=== PATIENT | male | born 1970 | race African-American/Black ===

== ENCOUNTER 2021-06-10 11:28 | Outpatient (REF) | payer MEDICAID, SELFPAY ==
--- NOTE | ~2021-06-10 | XR_ITS ---
EXAMINATION: XR KNEE, RIGHT XR KNEE, LEFT CLINICAL INFORMATION: Pain. COMPARISON: None. TECHNIQUE: AP, tunnel, lateral, and sunrise views of the right and left knee. FINDINGS: Right Knee: No significant joint space narrowing or marginal osteophytes. No osseous erosion. No fracture or dislocation. No abnormal soft tissue calcification. No joint effusion. Left Knee: Mild medial and patellofemoral compartment tiny marginal osteophytes. No osseous erosion. No fracture or dislocation. Trace joint effusion. Tibial tuberosity enthesopathic spurring. XR/XR knee RT 4V IMPRESSION: RIGHT KNEE: Unremarkable examination. 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 Trace joint effusion.
--- NOTE | ~2021-06-10 | XR_ITS ---
EXAMINATION: XR KNEE, RIGHT XR KNEE, LEFT CLINICAL INFORMATION: Pain. COMPARISON: None. TECHNIQUE: AP, tunnel, lateral, and sunrise views of the right and left knee. FINDINGS: Right Knee: No significant joint space narrowing or marginal osteophytes. No osseous erosion. No fracture or dislocation. No abnormal soft tissue calcification. No joint effusion. Left Knee: Mild medial and patellofemoral compartment tiny marginal osteophytes. No osseous erosion. No fracture or dislocation. Trace joint effusion. Tibial tuberosity enthesopathic spurring. XR/XR knee LT 4V IMPRESSION: RIGHT KNEE: Unremarkable examination. 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 Trace joint effusion.
== END 2021-06-10 11:29 | disposition home or self-care (01) ==
LOC: HO.XRAY 11:28
PROVIDERS: PCP Internal Medicine; Visit Provider Internal Medicine
DX: M25.561 Pain in right knee (principal); M25.562 Pain in left knee
CPT/HCPCS: 73564

== ENCOUNTER 2023-10-19 12:58 | Outpatient (REF) | payer MEDICAID, SELFPAY ==
[2023-10-19 14:27] LABS: MANUAL DIFF FLAG NO
[2023-10-19 14:43] LABS: Basophils Absolute Auto 0.1 X10*3/uL (0.0-0.2); Eosinophils Absolute Auto 0.3 X10*3/uL (0.0-0.4); Eosinophils Percent Auto 3.2 % (0-4); Hematocrit 44.9 % (42.0-52.0); Hemoglobin 15.1 g/dl (14.0-18.0); Imm Gran Abs Auto 0.02 X10*3/uL (0.00-0.03); Imm Gran Pct Auto 0.2 % (0.0-0.4); Lymphocytes Percent Auto 35.5 % (20-40); Mean Corpuscular HGB Conc 33.6 g/dl (31.0-36.0); Mean Corpuscular Hemoglobin 29.4 pg (27.0-33.0); Mean Corpuscular Volume 87.5 fL (80.0-98.0); Mean Platelet Volume 10.2 fL (9.4-12.4); Monocytes Absolute Auto 0.8 X10*3/uL (0.1-1.2); Monocytes Percent Auto 9.4 % (2-11); Neutrophils Absolute Auto 4.3 x10*3/uL (2.0-8.3); Neutrophils Percent Auto 50.7 % (45-73); Platelet Count 342 X10*3/uL (160-400); Red Blood Count 5.13 X10*6/uL (4.60-5.80); Red Cell Distribution Width 12.9 % (11.0-16.0); White Blood Count 8.4 X10*3/uL (4.8-10.8)
[2023-10-19 14:50] LABS: Anion Gap 10 (12-20); Blood Urea Nitrogen 10 mg/dL (9-16); Calcium 9.8 mg/dL (8.4-10.2); Carbon Dioxide 30 mmol/L (22-29); Chloride 103 mmol/L (96-108); Cholesterol 178 mg/dL (<200); Estimated Glomerular Filt Rate > 60; Glucose Random 83 mg/dL (60-115); HDL Cholesterol 52 mg/dL (>40); LDL Cholesterol Calculated 107 mg/dL (<100); Potassium 4.1 mmol/L (3.3-5.1); Sodium 139 mmol/L (135-145); Triglycerides 96 mg/dL (<150)
== END 2023-10-19 12:59 | disposition home or self-care (01) ==
LOC: HO.CHCLDS 12:58
PROVIDERS: Visit Provider Internal Medicine
DX: E78.00 Pure hypercholesterolemia, unspecified (principal)
CPT/HCPCS: 36415; 80048; 80061; 84443; 85025

== ENCOUNTER 2025-11-12 11:05 | Outpatient (REF) | payer SELFPAY ==
--- OUTSIDE RECORDS SUMMARY | 2025-11-12 09:30 | XMS_ITS | Encounter Summary ---
Author Organization [email or web address] Address [address] [place] [address] 7 [place] [address] Care Team Providers Care Diet Attendant Name Role Phone Gertrude Davis MD Primary Care Provider [phone] Reason for Visit * Reason Comments Annual Exam Encounter Details Date Type Department Care Team ([facility] st Contact Info) Description 11/12/2025 9:30 AM EST Office Visit [facility] [address] [place], [place] [phone] Gertrude Davis MD [address] [place] [address] Annual physical exam (Primary Dx); Hypercholesterolemia; Primary hypertension; Seasonal allergies; Depressive disorder; Other asthma; Dietary counseling; Exercise counseling; Class 1 obesity due to excess calories with serious comorbidity and body mass index (BMI) of 30.0 to 30.9 in adult; Intertrigo of web of toe; Vitiligo; Blurry vision; Encounter for immunization Social History Tobacco Use Types Packs/Day Years Used Date Smoking Tobacco: Never Smokeless Tobacco: Never Alcohol Use Standard Drinks/Week Comments Never 0 (1 standard drink = 0.6 oz pur e alcohol) Depression Answer Date Recorded Patient Health Questionnaire-9 Score 6 11/12/2025 Patient Health Questionnaire-9 Score 6 11/12/2025 Last PHQ-9: Questionnaire Data Not on file 1 01/13/2025 Housing Stability Answer Date Recorded What is your housing situation today? I have rosemarie felix 11/05/[address] you li ve. Do you have problems with any of the following? None of the above 11/05/2025 Food Insecurity Answer Date Recorded Within the past 12 months, y ou worried that your food would run out before you got money to buy more: Never True 11/05/2025 Within the past 12 months,th e food you bought just didn't last and you didn't have enough money to get more: Never True Transportation Answer Date Recorded In the past 12 months, has l ack of transportation kept you from medical appts, meetings, work or from getting things needed for daily living? No 11/05/2025 Utilities Answer Date Recorded In the past 12 months, has t he [employer], gas, oil or water company threatened to shut off services in your home? No 11/05/2025 Depression Answer Date Recorded Patient Health Questionnaire-2 Score 2 11/12/2025 Internet Access Answer Date Recorded Internet Access Q1 Yes 11/05/2025 Internet Access Q2 Not on file 11/05/2025 Sex and Gender Information Value Date Recorded Sex Assigned at Male 09/20/2022 10:33 AM EDT Legal Sex Male 10:33 AM EDT Gender Identity Male 09/20/2022 10:33 AM EDT Sexual Orientation Straight 09/20/2022 10 :33 AM EDT documented as of this encounter Last Filed Vital Signs Vital Sign Reading Time Taken Comments Blood Pressure 129/73 11/12/2025 9:28 AM EST Pulse 68 11/12/2025 9:28 AM EST Temperature 36.7 C (98.1 F) 11/12/2025 9:28 AM EST Respiratory Rate 20 11/12/2025 9:28 AM EST Oxygen Saturation 98% 11/12/2025 9:28 AM EST Inhaled Oxygen Concentration - - Weight 97.1 kg (214 lb) 11/12/2025 9:28 AM EST Height 177.8 cm (5' 10 ) 11/12/2025 9:28 AM EST Body Mass Index 30.71 11/12/2025 9:28 AM EST documented in this encounter Functional Status * Over the past 2 weeks, how often have you been bothered by any of the following problems? Question Answer Date of Assessment Author Patient Health Questionnaire-2 Score 2 10/22 9:35 AM EST Francheska Shafer MA * Little interest or pleasure in doing things Answer Date of Assessment Author Several days 11/12/2025 9:35 AM EST Quan Shafer MA * Feeling down, depressed, or hopeless Answer Date of Assessment Author Several days 11/12/2025 9:35 AM Quan Parmra [place] * Trouble falling or staying asleep, or sleeping too much Answer Date of Assessment Author Several days 11/12/2025 9:35 AM Quan Parmar MA * Feeling tired or having little energy Answer Date of Assessment Author Several days 11/12/2025 9:35 AM Quan Parmar MA * Poor appetite or overeating Answer Date of Assessment Author Not at all 11/12/2025 9:35 AM Quan Parmar MA * Feeling bad about yourself - or that you are a failure or have let yourself or your family down Answer Date of Assessment Author Several days 11/12/2025 9:35 AM Quan Parmar MA * Trouble concentrating on things, such as reading the newspaper or watching television Answer Date of Assessment Author Several days 11/12/2025 9:35 AM Quan Parmar MA * Moving or speaking so slowly that other people could have noticed? Or the opposite - being so fidgety or restless that you have been moving around a lot more than usual. Answer Date of Assessment Author Not at all 11/12/2025 9:35 AM Quan Parmar MA * Thoughts that you would be better off or hurting yourself in some way Answer Date of Assessment Author Not at all 11/12/2025 9:35 AM Quan Parmar MA * Patient Health Questionnaire-9 Score Answer Date of Assessment Author 6 11/12/2025 9:35 AM Quan Parmar MA * Over the last 2 weeks, how often have you been bothered by any of the following problems? Question Answer Date of Assessment Author Feeling nervous, anxious, or on edge 1 10/22 9:34 AM Francheska Parmar MA Not being able to stop or co ntrol worrying 0 11/12/2025 9:34 AM Francheska Parmar MA Worrying too much about diff erent things 1 11/12/2025 9:34 AM Francheska Parmar MA Trouble relaxing 0 11/12/2025 9:34 AM Francheska Monroy MA Being so restless that it is hard to sit still 1 11/12/2025 9:34 AM Francheska Parmar MA Becoming easily annoyed or irritable 1 10/22 9:34 AM Francheska Parmar MA Feeling afraid as if somethi ng awful might happen 0 11/12/2025 9:34 AM Francheska Parmar MA KANNAN-7 Total Score 4 11/12/2025 9:34 AM Francheska Parmar MA * How difficult have these problems made it for you to do your work, take care of things at home, or get along with other people? Answer Date of Assessment Author Somewhat difficult 11/12/2025 9:35 AM Francheska Parmar MA documented as of this encounter Progress Notes * Gertrude Davis MD - 11/12/2025 9:30 AM EST SUBJECTIVE Jackson Posada is a 55 y.o. male who presents for Annual Exam. HPI Jackson Posada, 55-year-old male - History of depression, previously felt depressed, currently feels better but not fully recovered - Denies suicidal ideation - Previously took medication for depression, stopped due to personal preference and perceived lack of effect, switched to a different medication with no improvement - Reports sleep is better but still wakes up before midnight and at 3:00 AM - History of asthma, symptoms worse in spring and summer - Gallbladder removed in May 2025 - Reports congestion when montelukast is stopped, improvement when resumed - Longstanding vitiligo, limited to a specific area, associated with itching - Sensation of something in the right eye, present for years, worse with light and at night, associated with swelling - Chronic back pain, reports ornu-mvo-nuopnab medications do not help Problem List[1] Allergies[2] Medications Ordered Prior to Encounter[3] Review of Systems Constitutional: Negative for activity change, appetite change, chills and diaphoresis. HENT: Negative for dental problem, drooling and ear discharge. Eyes: Negative for pain and itching. Respiratory: Negative for cough, choking and chest tightness. Cardiovascular: Negative for palpitations and leg swelling. Gastrointestinal: Negative for abdominal pain, anal bleeding and blood in stool. Endocrine: Negative for cold intolerance and heat intolerance. Genitourinary: Negative for flank pain, frequency and genital sores. Musculoskeletal: Positive for back pain. Neurological: Negative for light-headedness, numbness and headaches. Psychiatric/Behavioral: Negative for agitation, confusion and decreased concentration. OBJECTIVE Vitals: 11/12/25 0928 BP: 129/73 BP Location: Left arm Patient Position: Sitting BP Cuff Size: Adult long Pulse: 68 Resp: 20 Temp: 98.1 ??F (36.7 ??C) TempSrc: Oral SpO2: 98% Weight: 214 lb (97.1 kg) Height: 5' 10 (1.778 m) Physical Exam Constitutional: General: He is not in acute distress. Appearance: Normal appearance. He is obese. He is not ill-appearing, toxic- appearing or diaphoretic. HENT: Head: Normocephalic. Right Ear: Tympanic membrane normal. Left Ear: Tympanic membrane normal. Nose: Nose normal. Eyes: General: No scleral icterus. Right eye: No discharge. Left eye: No discharge. Pupils: Pupils are equal, round, and reactive to light. Cardiovascular: Rate and Rhythm: Normal rate and regular rhythm. Heart sounds: No murmur heard. No friction rub. No gallop. Pulmonary: Effort: Pulmonary effort is normal. No respiratory distress. Breath sounds: Normal breath sounds. No stridor. No wheezing, rhonchi or rales. Chest: Chest wall: No tenderness. Abdominal: General: Abdomen is flat. There is no distension. Palpations: Abdomen is soft. There is no mass. Tenderness: There is no abdominal tenderness. There is no right CVA tenderness, guarding or rebound. Hernia: No hernia is present. Musculoskeletal: General: Normal range of motion. Cervical back: Normal range of motion. Skin: General: Skin is warm. Comments: Whitish Maceration of the third and fourth toe webs b/l Neurological: General: No focal deficit present. Mental Status: He is alert. Psychiatric: Mood and Affect: Mood normal. Behavior: Behavior normal. Assessment/Plan Assessment/Plan Diagnoses and all orders for this visit: Annual physical exam - CBC auto differential; Future - Comprehensive Metabolic Panel; Future - Lipid Panel, Standard; Future - TSH with Reflex to Free T4; Future Hypercholesterolemia Primary hypertension - CBC auto differential; Future - Comprehensive Metabolic Panel; Future - Lipid Panel, Standard; Future - TSH with Reflex to Free T4; Future Seasonal allergies - cetirizine (ZyrTEC) 10 MG tablet; Take 1 tablet (10 mg) by mouth in the morning. Depressive disorder - sertraline (Zoloft) 25 MG tablet; Take 1 tablet (25 mg) by mouth Once per day. Other asthma - montelukast (Singulair) 10 MG tablet; Take 1 tablet (10 mg) by mouth at bedtime. Dietary counseling Exercise counseling Class 1 obesity due to excess calories with serious comorbidity and body mass index (BMI) of 30.0 to 30.9 in adult Dietary Recommendations: Fruits, vegetables, whole grains, protein foods, and fat-free or low-fat dairy products are healthychoices. Eat different types of protein foods in your diet. This can include seafood, lean meats, poultry, beans, peas, lentils, nuts, seeds, soy products, and eggs. Limit foods and beverages higher in added sugars, saturated fat, and sodium. Exercise Recommendations: At least 150 minutes of moderate-intensity physical activity per week, or an equivalent combinationof moderate- and vigorous-intensity activity Intertrigo of web of toe - terbinafine (LamISIL) 250 MG tablet; Take 1 tablet (250 mg) by mouth Once per day for 14 days. Vitiligo Comments: Vitiligo of foreskin and glans penis. Pt defer treatment. Blurry vision Annual physical exam: - Annual physical exam performed. Hypercholesterolemia: - Hypercholesterolemia addressed. - Ordered blood test to check cholesterol. Recommended low cholesterol diet. Primary hypertension: - Blood pressure well controlled, no change required. - Continue current management. Seasonal allergies: - Allergic symptoms controlled with current medications. - Continue cetirizine and montelukast. Confirmed no contraindication for montelukast after cholecystectomy. Resume montelukast due to congestion when discontinued. Depressive disorder: - Depressive disorder present, positive screening. Not in remission. No current suicidal ideation. - Offered psychotherapy and medication. Patient declined psychotherapy and initially declined medication, then agreed to start medication at lowest dose. Plan to titrate dose as needed, with follow-up in 1 month to assess response. Monitor for side effects. - Risks and side effects: Discussed that medication may take time to work and possible side effects; instructed to report any side effects. Other asthma: - Asthma symptoms not severe at present. - Resume montelukast as needed, especially during spring and summer. Monitor symptoms. Dietary counseling: - Dietary counseling provided. - Recommended low cholesterol diet. Advised to watch diet. Exercise counseling: - Exercise counseling provided. - Advised to start exercising, begin with walking. Goal of 150 minutes per week of physical activity. Class 1 obesity due to excess calories with serious comorbidity and body mass index (BMI) of 30.0 to 30.9 in adult: - Class 1 obesity addressed. - Recommended dietary changes and increased physical activity. Intertrigo of web of toe: - Intertrigo present between toes. - Prescribed oral medication for 14 days. Recommended use of dry salt solution (Drysol 20%) to apply between toes. Vitiligo: - Vitiligo present, remains localized, benign, not bothersome. - Monitor for progression. Blurry vision: - Blurry vision in right eye, present for years. - Referral to ophthalmology for comprehensive eye exam. Back pain: - Back pain present, not relieved by sadh-rfo-xwedufr medications. - Plan to address back pain in detail at next visit. This note was drafted using Ambient (AI) technology. The patient/patient's guardian has been informed and has consented to the use of this technology: Yes [1] Patient Active Problem List Diagnosis Asthma Depressive disorder Hypercholesterolemia Hypertensive disorder Seasonal allergies Hospital discharge follow-up [2] Allergies Allergen Reactions Penicillin G Unknown Penicillins Other reaction(s): Hives / Skin Rash Peanut-Containing Drug Products Hives and Rash Other Reaction(s): peanut butter [3] Current Outpatient Medications on File Prior to Visit Medication Sig Dispense Refill atorvastatin (Lipitor) 10 MG tablet TAKE ONE TABLET BY MOUTH ONCE DAILY 90 tablet 1 baclofen (Lioresal) 10 MG tablet TAKE ONE TABLET TWICE DAILY 60 tablet 5 cetirizine (ZyrTEC) 10 MG tablet TAKE ONE TABLET DAILY 90 tablet 5 cetirizine (ZyrTEC) 10 MG tablet TAKE ONE TABLET EVERY MORNING 90 tablet 0 gabapentin (Neurontin) 300 MG capsule TAKE ONE CAPSULE TWICE DAILY 60 capsule 5 lisinopril 20 MG tablet TAKE ONE TABLET EVERY DAY 90 tablet 1 montelukast (Singulair) 10 MG tablet TAKE ONE TABLET BY MOUTH EVERY EVENING 90 tablet 1 omeprazole (PriLOSEC) [address] capsule TAKE ONE CAPSULE TWICE DAILY BEFORE A MEAL 180 capsule 1 No current facility-administered medications on file prior to visit. documented in this encounter Plan of Treatment Upcoming Encounters Date Type Department Care Team (Late st Contact Info) Description 12/10/2025 4:00 PM EST Office Visit [facility] [address] [place] [address] Gertrude Davis MD [address] [place] [address] Scheduled Orders Name Type Priority Associated Diagnoses Orde r Schedule CBC auto differential Lab Routine Annual physical exam Primary hypertension Expected: 11/12/2025 (Approximate), Expires: 11/12/2026 Comprehensive Metabolic Panel Lab Routine Annual physical exam Primary hypertension Expected: 11/12/2025 (Approximate), Expires: 11/12/2026 Lipid Panel, Standard Lab Routine Annual physical exam Primary hypertension Expected: 11/12/2025 (Approximate), Expires: 11/12/2026 TSH with Reflex to Free T4 Lab Routine Annual physical exam Primary hypertension Expected: 11/12/2025 (Approximate), Expires: 11/12/2026 documented as of this encounter Visit Diagnoses Diagnosis Annual physical exam- Primary Routine general medical examination at a health care facility Hypercholesterolemia Pure hypercholesterolemia Primary hypertension Unspecified essential hypertension Seasonal allergies Allergic rhinitis, cause unspecified Depressive disorder Depressive disorder, not elsewhere classified Other asthma Dietary counseling Dietary surveillance and counseling Exercise counseling Class 1 obesity due to excess calories with serious comorbidity and body mass index (BMI) of 30.0 to 30.9 in adult Intertrigo of web of toe Vitiligo Blurry vision Other specified visual disturbances Encounter for immunization documented in this encounter Additional Health Concerns Assessment Noted Time PHQ-9 Depression Total Score: 6 11/12/20 25 9:35 AM EST documented as of this encounter Care Teams Diet Attendant Relationship Specialty Start Date End Date Gertrude Davis MD [address] [place] [address] PCP - General Internal Medicine 12/06/18 documented as of this encounter
--- OUTSIDE RECORDS SUMMARY | 2025-11-12 12:26 | XMS_ITS | Encounter Summary ---
Author Organization [employer] Address [address] [facility] [address] [place] [address] Care Team Providers Care Deep Fat Fry Cook Name Role Phone Gertrude Davis MD Primary Care Provider [phone] Encounter Details Date Type Department Care Team (Latest Contact Info) Description 11/12/2025 Travel Social History Tobacco Use Types Packs/Day Years [...] the past 12 months, has t he electric, gas, oil or water company threatened to [...] AM EDT documented as of this encounter Plan of Treatment Upcoming Encounters Date Type Department Care Team (Late st Contact Info) Description 12/10/2025 4:00 PM EST Office Visit [facility] [address] [place] [address] Gertrude Davis MD [address] [place] [address] documented as of this encounter Visit Diagnoses Not on filedocumented in this encounter Additional Health Concerns Assessment Noted Time PHQ-9 Depression Total Score: 6 11/12/20 25 9:35 AM EST documented as of this encounter Care Teams Deep Fat Fry Cook Relationship Specialty Start Date End Date Gertrude Davis MD [address] [place] [address] PCP - General Internal Medicine 12/06/18 documented as of this encounter
--- OUTSIDE RECORDS SUMMARY | 2025-11-12 12:26 | XMS_ITS | Encounter Summary ---
Author Organization [employer] Address [address] [place] [address] Care Team Providers Care Director Paid Media Name Role Phone Gertrude Davsi MD Primary Care Provider [phone] Reason for Referral * Consultation (Routine) - Pending Review Specialty Diagnoses / Procedures Referred By Montserrat junior Referred To Contact Ophthalmology Diagnoses Primary hypertension Gertrude Davis MD [address] [place] [address] Phone: tel: fax: Referral ID Status Reason Start Date Expiration Date Visits Requested Visits Authorized [id number] Pending Review Specialty Services Required 07/05/2025 07/05/2026 1 1 Encounter Details Date Type Department Care Team ([facility] st Contact Info) Description 07/05/2025 Orders Only [facility] [address] [place] [id number] Gertrude Davis MD [address] [place] [address] Primary hypertension (Primary Dx) Social History Tobacco Use Types Packs/Day Years Used Date Smoking Tobacco: Never Smokeless Tobacco: Never Alcohol Use Standard Drinks/Week Comments Never 0 (1 standard drink = 0.6 oz pur e alcohol) Sex and Gender Information Value Date Recorded Sex Assigned at Male 09/20/2022 10:33 AM EDT Legal Sex Male 10:33 AM EDT Gender Identity Male 09/20/2022 10:33 AM EDT Sexual Orientation Straight 09/20/2022 10 :33 AM EDT documented as of this encounter Plan of Treatment Upcoming Encounters Date Type Department Care Team (Late st Contact Info) Description 12/10/2025 4:00 PM EST Office Visit [facility] [address] [place] [address] Gertrude Davis MD [address] [place] [address] Scheduled Referrals Name Type Priority Associated Diagnoses Orde r Schedule Referral to Ophthalmology Outpatient Referral Routine Primary hypertension Expected: 07/05/2025 (Approximate), Expires: 07/05/2026 documented as of this encounter Visit Diagnoses Diagnosis Primary hypertension- Primary Unspecified essential hypertension documented in this encounter Care Teams Director Paid Media Relationship Specialty Start Date End Date Gertrude Davis MD [address] [place] [address] PCP - General Internal Medicine 12/06/18 documented as of this encounter
--- OUTSIDE RECORDS SUMMARY | 2025-11-12 12:26 | XMS_ITS | Encounter Summary ---
Author Organization [email or web address] Address [address] [place] [address] 7 [place] [address] Care Team Providers Care Undertaker Helper Name Role Phone Gertrude Davis MD Primary Care Provider [phone] Encounter Details Date Type Department Care Team (Late st Contact Info) Description 05/18/2024 Orders Only [facility] [address] [place] [address] Gertrude Davis MD [address] [place] [address] Primary hypertension (Primary Dx); Hypercholesterolemia Social History Tobacco Use Types Packs/Day Years [...] Description 12/10/2025 4:00 PM EST Office Visit [facility] [address] [place] [address] Gertrude Davis MD [address] [place] [address] documented as of this encounter Visit Diagnoses Diagnosis Primary hypertension- Primary Unspecified essential hypertension Hypercholesterolemia Pure hypercholesterolemia documented in this encounter Care Teams Undertaker Helper Relationship Specialty Start Date End Date Gertrude Davis MD [address] [place] [id number] PCP - General Internal Medicine 12/06/18 documented as of this encounter
--- OUTSIDE RECORDS SUMMARY | 2025-11-12 12:26 | XMS_ITS | Encounter Summary ---
Author Organization [employer] Address [address] [facility] 7 [place] [address] Care Team Providers Care Administrative Services Officer Name Role Phone Gertrude Davis MD Primary Care Provider [phone]- [phone] Reason for Visit * Reason Onset Date Comments chart prep 11/11/2025 Encounter Details Date Type Department Care Team ([facility] st Contact Info) Description 11/11/2025 Telephone [facility] MED & PEDS [address] [place] [address] Gertrude Davis MD [address] [place] [address] chart prep Social History Tobacco Use Types Packs/Day Years [...] AM EDT documented as of this encounter Miscellaneous Notes * Telephone Encounter - Briseida Mahan [place] - 11/11/2025 2:08 PM EST Chart Prep Labs: not applicable Images: not applicable Referrals: not applicable Vaccines due: Covid, Flu, PCV20, Hep B, RSV, and Zoster Screenings: colonoscopy and STI screening Overdue care gaps: SBIRT, PHQ-9, KANNAN-7, and Disability screen documented in this encounter Plan of Treatment Upcoming Encounters Date Type Department Care Team ([facility] st Contact Info) Description 12/10/2025 4:00 PM EST Office Visit [facility] PED[facility] [address] [place] [address] Gertrude Davis MD [address] [place] [address] documented as of this encounter Visit Diagnoses Not on filedocumented in this encounter Care Teams Administrative Services Officer Relationship Specialty Start Date End Date Gertrude Davis MD [address] [place] [address] PCP - General Internal Medicine 12/06/18 documented as of this encounter
--- OUTSIDE RECORDS SUMMARY | 2025-11-12 12:26 | XMS_ITS | Encounter Summary ---
Author Organization [email or web address] Address [address] [place] [address] 7 [place] [address] Care Team Providers Care Financial Controller Name Role Phone Gertrude Davis MD Primary Care Provider [phone]- [phone] Encounter Details Date Type Department Care Team (Late st Contact Info) Description 12/03/2022 Orders Only [facility] MED & PEDS [address] [place] [address] Melanie Larios LPN Social History Tobacco Use Types Packs/Day Years Used Date Smoking Tobacco: Never Assessed Sex and Gender Information Value Date Recorded Sex Assigned at Male 09/20/2022 10:33 AM EDT Legal Sex Male 10:33 AM EDT Gender Identity Male 09/20/2022 10:33 AM EDT Sexual Orientation Straight 09/20/2022 10 :33 AM EDT documented as of this encounter Plan of Treatment Upcoming Encounters Date Type Department Care Team (Late st Contact Info) Description 12/10/2025 4:00 PM EST Office Visit [facility] MED & PEDS [address] [place] [address] Gertrude Davis MD [address] [place] [address] documented as of this encounter Visit Diagnoses Not on filedocumented in this encounter Care Teams Financial Controller Relationship Specialty Start Date End Date Gertrude Davis MD [address] [place] [address] PCP - General Internal Medicine 12/06/18 documented as of this encounter
--- OUTSIDE RECORDS SUMMARY | 2025-11-12 12:26 | XMS_ITS | Encounter Summary ---
Author Organization [employer] Address [address] [place] [address] [address] [place] [address] Care Team Providers Care Trackwalker Name Role Phone Gertrude Davis MD Primary Care Provider [phone]- [phone] Reason for Visit * Reason Comments Med Refill Encounter Details Date Type Department Care Team ([facility] Contact Info) Description 11/30/2022 Refill [facility] MEDICINE [address] [place], [place] [phone] Gertrude Davis MD [address] [place], [place] [phone] Seasonal allergies (Primary Dx); Gastroesophageal reflux disease without esophagitis Social History Tobacco Use Types Packs/Day Years [...] Upcoming Encounters Date Type Department Care Team ([facility] Contact Info) Description 12/10/2025 4:00 PM EST Office Visit [facility]C MED & PEDS [address] [place], [place] [phone] Gertrude Davis MD [address] [place], [place] [phone] documented as of this encounter Visit Diagnoses Diagnosis Seasonal allergies- Primary Allergic rhinitis, cause unspecified Gastroesophageal reflux disease without esophagitis Esophageal reflux documented in this encounter Care Teams Trackwalker Relationship Specialty Start Date End Date Gertrude Davis MD [address] [place] [address] PCP - General Internal Medicine 12/06/18 documented as of this encounter
--- OUTSIDE RECORDS SUMMARY | 2025-11-12 12:26 | XMS_ITS | Clinical Summary ---
Author Organization [employer] Address [address] [place] [address] 7t [place] [address] Care Team Providers Care Criminal Psychologist Name Role Phone Gertrude Davis MD Primary Care Provider +1- [phone] Allergies Active Allergy Reactions Criticality Noted Date Comments Peanut-Containing Drug Products Hives,Rash Low 01/05/2019 Other Reaction(s): peanut butter Penicillin G Unknown 03/06/2013 Penicillins 12/06/2018 Other reaction(s): Hives / Skin Rash Medications baclofen (Lioresal) 10 MG tabletIndications :Chronic bilateral low back pain with left-sided sciatica TAKE ONE TABLET TWICE DAILY 60 tablet 5 09/16/20 23 Active cetirizine (ZyrTEC) 10 MG tabletIndications :Seasonal allergies TAKE ONE TABLET DAILY 90 tablet 5 09/16/20 23 Active gabapentin (Neurontin) 300 MG capsuleIndication s:Chronic bilateral low back pain with left-sided sciatica TAKE ONE CAPSULE TWICE DAILY 60 capsule 5 09/23/20 23 Active atorvastatin (Lipitor) 10 MG tabletIndications :Mixed hyperlipidemia TAKE ONE TABLET BY MOUTH ONCE DAILY 90 tablet 1 09/27/20 25 Active lisinopril 20 MG tabletIndications :Essential (primary) hypertension TAKE ONE TABLET EVERY DAY 90 tablet 1 09/27/20 25 Active omeprazole (PriLOSEC) [address] capsuleIndication s:Gastroesophagea l reflux disease without esophagitis TAKE ONE CAPSULE TWICE DAILY BEFORE A MEAL 180 capsule 1 09/27/20 25 Active sertraline (Zoloft) 25 MG tabletIndications :Depressive disorder Take 1 tablet (25 mg) by mouth Once per day. 30 tablet 1 5 11:09 AM EST 11/12/20 25 026 Active montelukast (Singulair) 10 MG tabletIndications :Other asthma Take 1 tablet (10 mg) by mouth at bedtime. 90 tablet 1 11/12/20 Active cetirizine (ZyrTEC) 10 MG tabletIndications :Seasonal allergies Take 1 tablet (10 mg) by mouth in the morning. 90 tablet 5 11:09 AM EST 11/12/20 Active terbinafine (LamISIL) 250 MG tabletIndications :Intertrigo of web of toe Take 1 tablet (250 mg) by mouth Once per day for 14 days. 14 tablet 5 11:09 AM EST 11/12/20 25 026 Active cetirizine (ZyrTEC) 10 MG tabletIndications :Seasonal allergies TAKE ONE TABLET EVERY MORNING 90 tablet 04/05/20 25 025 Discontinued(Th erapy completed) montelukast (Singulair) 10 MG tabletIndications :Other asthma TAKE ONE TABLET BY MOUTH EVERY EVENING 90 tablet 1 09/27/20 25 025 Discontinued(Re order (will not trigger notification to Pharmacy)) Active Problems Problem Noted Date Diagnosed Date Hospital discharge follow-up 06/05/2024 Assessment & Plan (06/05/2024 9:49 AM EDT): Patient seen at er on 01/22/24 due to epigastric pain. He has this same symptoms before prior about 2 years ago. He received maalox/lidocaine/toradol with good response. Denied active abdominal pain, no diarrhea/vomiting. Reviewed er precautions, lifestyle modifications. Follow up if symptoms recurs Asthma 12/03/2022 Depressive disorder 12/03/2022 Hypercholesterolemia 12/03/2022 Hypertensive disorder 12/03/2022 Seasonal allergies 12/06/2018 Encounters Date Type Department Care Team Description 11/12/2025 9:30 AM EST Office Visit [facility] CHC MED & PEDS [address] [place] [address] Gertrude Davis MD Annual physical exam (Primary Dx); Hypercholesterolemia; Primary hypertension; Seasonal allergies; Depressive disorder; Other asthma; Dietary counseling; Exercise counseling; Class 1 obesity due to excess calories with serious comorbidity and body mass index (BMI) of 30.0 to 30.9 in adult; Intertrigo of web of toe; Vitiligo; Blurry vision; Encounter for immunization 11/12/2025 Travel 11/11/2025 Telephone [facility] [address] [place] [address] Gertrude Davis MD chart prep 11/05/2025 Patient Outreach [facility] [address] [place], [place] [phone] Gertrude Davis MD Pre-visit Planning (SDOH negative, Tobacco screening negative. ) 09/27/2025 Refill [facility] MEDICINE [address] [place] [address] Gertrude Davis MD Mixed hyperlipidemia; Other asthma; Essential (primary) hypertension; Gastroesophageal reflux disease without esophagitis from Last 3 Months Immunizations Immunization Administration Dates Next Due Influenza injectable quadriv alent preservative free 10/06/2023,10/13/2021,01/05/2019 Influenza, seasonal, injecta ble, preservative free 11/12/2025 Pneumococcal Conjugate PCV 20 11/12/2025 Tdap 01/05/2019 Family History Medical History Relation Name Comments Diabetes Father Heart disease Father Stroke Father Diabetes Father's Brother Relation Name Status Comments Father Father's Brother Social History Tobacco Use Types Packs/Day Years Used Date Smoking Tobacco: Never Smokeless Tobacco: Never Tobacco Cessation:Counseling Given: Not Answered Alcohol Use Standard Drinks/Week Comments Never 0 [...] Orientation Straight 09/20/2022 10 :33 AM EDT Last Filed Vital Signs Vital Sign Reading [...] Mass Index 30.71 11/12/2025 9:28 AM EST Plan of Treatment Upcoming Encounters Date Type Department Care Team (Late st Contact Info) Description 12/10/2025 4:00 PM EST Office Visit [facility] CHC MED & PEDS [address] [place] [address] Gertrude Davis MD [address] [place] [address] Health Maintenance Due Date Last Done Comments CT Colonography 1972 Colonoscopy 1972 Colorectal Cancer Screening 1972 FIT DNA/Cologuard 1972 FIT 1972 FOBT 1972 HIV Screening 1972 Sigmoidoscopy 1972 Disability Screening 1972 Hepatitis B Vaccines (1 of 3 - 19+ 3-dose series) 1991 RSV Patients and Patients Aged 60 years or older (1 - Risk 50-74 years 1-dose series) 2022 Zoster Vaccines (1 of 2) 2022 Alcohol/Substance Use Screening 11/12/2026 11/12/2025 COVID-19 Vaccine ( - season) 2026 11/19/2021, 03/20/2021, 02/26/2021 Postponed from 07/22/2025 (Patient Refused) Depression Screening 11/12/2026 11/12/2025, 11/12/20 25 SDOH Screening 11/12/2026 11/12/2025 Tobacco Screening 11/12/2026 11/12/2025 Lipid Panel 10/19/2028 10/19/2023, 04/21, 06/11/2021 DTaP/Tdap/Td Vaccines (2 - Td or Tdap) 01/05/2029 01/05/2019 Hepatitis C Screening Completed 05/05/2022 Influenza Vaccine Completed 11/12/2025, , 10/13/2021, Additional history exists Pneumococcal Vaccine: 50+ Years Completed 11/12/2025 HIB Vaccines Aged Out No longer eligi ble based on patient's age to complete this topic HPV Vaccines Aged Out No longer eligi ble based on patient's age to complete this topic Hepatitis A Vaccines Aged Out No long er eligible based on patient's age to complete this topic IPV Vaccines Aged Out No longer eligi ble based on patient's age to complete this topic Meningococcal B Vaccine Aged Out No l onger eligible based on patient's age to complete this topic Meningococcal Vaccine Aged Out No pj jose eligible based on patient's age to complete this topic RSV under 20 months Aged Out No longe r eligible based on patient's age to complete this topic Rotavirus Vaccines Aged Out No longer eligible based on patient's age to complete this topic Procedures Procedure Name Priority Date/Time Associated Diagnosis Comments LIPID PANEL, STANDARD Routine 10/19/2023 1:00 PM EST Hypercholesterolemi a ZZZ HISTORICAL HEPATITIS C AB W/REFL TO HCV RNA, QN, PCR Routine 05/05/2022 8:57 AM EDT from Last 3 Months or Most Recently Relevant to Health Maintenance Results * (ABNORMAL) Lipid Panel, Standard (10/19/2023 1:00 PM EST) Triglycerides 96 <150 mg/dL [facility] Comment:Desirable Triglyceri de: less than 150 mg/dLBorderline High Triglyceride 150-199 mg/dLHigh Triglyceride: 200-499 mg/dLVery High Triglyceride: greater than or equal to 5OO mg/dL Cholesterol 178 <200 mg/dL [facility] Comment:Desirable Cholestero l: less than 200 mg/dLBorderline High Cholesterol: 200-239 mg/dLHigh Cholesterol: greater than 239 mg/dL LDL Cholesterol Calculated 107(H) <100 mg/dL [facility] Comment:Desirable LDL: less than 100 mg/dLNear Optimal/Above Optimal LDL: 110- 129 mg/dLBorderline High LDL: 130-159 mg/dLHigh LDL: 160-189 mg/dLVery High LDL: greater than or equal to 190 mg/dL HDL Cholesterol 52 >40 mg/dL [facility] Comment:Desirable HDL: great er than 40 mg/dL Note: This HDL assay may give artificially low results in patients with liver disease. Blood Venous blood specimen / Unknown 10/19/2023 1:00 PM EST 10/19/2023 2:23 PM EST us Gertrude Davis MD LAB BLOOD ORDERABLES Final Result [facility] [address] [place] [address] [phone] * HEPATITIS C AB W/REFL TO HCV RNA, QN, PCR (05/05/2022 8:57 AM EDT) HEPATITIS C ANTIBODY NON-REACT ALLEN NON-REACT ALLEN [facility] INDEX <0.02 <1.00 [facility] Comment: HCV antibody was non-reactive. There is no laboratory evidence of HCV infection. In most cases, no further action is required. However, if recent HCV exposure is suspected, a test for HCV RNA (test code 38564) is suggested. For additional information please refer to http://education.Trademob/faq/UPL56w7 (This link is being provided for informational/ educational purposes only.) 05/05/2022 8:57 AM EDT us Gertrude Davis MD HISTORICAL/NON ORDERABLE RAFAELA VELASQUEZ Final Result [facility] [address] from Last 3 Months or Most Recently Relevant to Health Maintenance Insurance [address] [place] [address] Care Teams Criminal Psychologist Relationship Specialty Start Date End Date Gertrude Davis MD [address] [place] [id number] PCP - General Internal Medicine 12/06/18
--- OUTSIDE RECORDS SUMMARY | 2025-11-12 12:26 | XMS_ITS | Encounter Summary ---
Author Organization [id number] Address [address] [place] [address] 7 [place] [address] Care Team Providers Care Concrete Mason Name Role Phone Gertrude Davis MD Primary Care Provider +1- [phone] Encounter Details Date Type Department Care Team (Latest Contact Info) Description 12/16/2021 Abstract [facility] CONVERSIONS Dental, Provider, DDS Social History Tobacco Use Types Packs/Day Years [...] Description 12/10/2025 4:00 PM EST Office Visit [facility] CH[facility] MED & PEDS [address] [place] [address] Gertrude Davis MD [address] [place] [address] documented as of this encounter Visit Diagnoses Not on filedocumented in this encounter Care Teams Concrete Mason Relationship Specialty Start Date End Date Gertrude Davis MD [address] [place] [address] PCP - General Internal Medicine 12/06/18 documented as of this encounter
--- OUTSIDE RECORDS SUMMARY | 2025-11-12 12:26 | XMS_ITS | Encounter Summary ---
Author Organization [employer] Address [address] [place] [address] 7 [place] [address] Care Team Providers Care Meter Technician Name Role Phone Gertrude Davis MD Primary Care Provider +1- [phone] Encounter Details Date Type Department Care Team (Late st Contact Info) Description 05/02/[address] [facility] MEDICINE [address] [place] [address] Radha Robertson LPN Social History Tobacco Use Types Packs/Day [...] Description 12/10/2025 4:00 PM EST Office Visit [facility] CH[facility] MED & PEDS [address] [place] [address] Gertrude Davis MD [address] [place] [address] documented as of this encounter Visit Diagnoses Not on filedocumented in this encounter Care Teams Meter Technician Relationship Specialty Start Date End Date Gertrude Davis MD [address] [place] [address] PCP - General Internal Medicine 12/06/18 documented as of this encounter
[2025-11-12 14:53] LABS: MANUAL DIFF FLAG NO
[2025-11-12 14:57] LABS: Hematocrit 43.1 % (42.0-52.0); Hemoglobin 14.5 g/dl (14.0-18.0); Imm Gran Abs Auto 0.01 X10*3/uL (0.00-0.03); Imm Gran Pct Auto 0.2 % (0.0-0.4); Lymphocytes Absolute Auto 2.3 X10*3/uL (1.2-4.9); Mean Corpuscular HGB Conc 33.6 g/dl (31.0-36.0); Mean Corpuscular Hemoglobin 29.4 pg (27.0-33.0); Mean Corpuscular Volume 87.2 fL (80.0-98.0); NRBC Abs Auto 0.000 X10*3/uL (0.0-0.012); NRBC Pct Auto 0.0 /100WBC (0.0-0.2); Platelet Count 288 X10*3/uL (160-400); Red Blood Count 4.94 X10*6/uL (4.60-5.80); White Blood Count 5.5 X10*3/uL (4.8-10.8)
[2025-11-12 15:18] LABS: Alanine Aminotransferase 36 U/L (0-40); Albumin Level 4.6 g/dL (3.5-5.0); Alkaline Phosphatase 72 U/L (39-117); Anion Gap 11 (12-20); Aspartate Amino Transferase 38 U/L (5-37); Blood Urea Nitrogen 15 mg/dL (9-16); Calcium 10.0 mg/dL (8.4-10.2); Carbon Dioxide 28 mmol/L (22-29); Chloride 106 mmol/L (96-108); Cholesterol 165 mg/dL (<200); Estimated Glomerular Filt Rate > 60; HDL Cholesterol 61 mg/dL (>40); Potassium 4.3 mmol/L (3.3-5.1); Sodium 141 mmol/L (135-145); Total Protein 7.7 g/dL (6.5-8.0); Triglycerides 76 mg/dL (<150)
== END 2025-11-12 11:06 | disposition home or self-care (01) ==
LOC: HO.CHCLDS 11:05
PROVIDERS: Visit Provider Internal Medicine
DX: Z00.00 Encounter for general adult medical examination without abnormal findings (principal); I10 Essential (primary) hypertension
CPT/HCPCS: 36415; 80053; 80061; 84443; 85025